=== PATIENT | male | born 1970 | race Caucasian/White ===

== ENCOUNTER 2016-12-21 20:13 | Inpatient (IN) | payer OTHER ==
[~2016-12-21] VITALS: Ht 167.6 cm; Wt 72.6 kg
[~2016-12-21 20:13] MED LIST: GOOD SENSE ASPI81 M3; LOP600 PO; TOPROL XL25 MG
[2016-12-21 21:48] LABS: BASOPHIL % 0.3 % (0-2); PLATELET COUNT 320 x10^3mcL (130-400); RED CELL DISTRIBUTION WIDTH 12.6 % (11.5-14.5)
[2016-12-21 21:52] LABS: CALCIUM 8.9 mg/dL (8.5-10.1); CARBON DIOXIDE 28.8 mmol/L (21-32); CHLORIDE SERUM 103 mmol/L (98-107); CREATININE SERUM 1.2 mg/dL (0.7-1.3); GFR1 > 60 mL/min; GLUCOSE SERUM 118 mg/dL (74-106); POTASSIUM SERUM 3.6 mmol/L (3.5-5.1); SODIUM SERUM 137 mmol/L (136-145)
[2016-12-21 21:57] LABS: ALBUMIN 3.7 g/dL (3.4-5.0); ALKALINE PHOSPHATASE 89 U/L (46-116); ALT/SGPT 27 U/L (16-63); AST/SGOT 20 U/L (15-37); BILIRUBIN TOTAL 0.9 mg/dL (0.20-1.00); TOTAL PROTEIN, SERUM 7.6 g/dL (6.4-8.2)
[2016-12-21] MEDS ORDERED: PRILOSEC OTC20 M1 PO (22:58)
[2016-12-21] MEDS ORDERED: BENAZEPRIL HYDR20 M1 PO (22:58)
[2016-12-21 23:12] LABS: UA SPECIFIC GRAVITY <=1.005 (1.005-1.035); microscopic required? YES; urine erythrocyte TRACE (NEGATIVE)
[2016-12-22 00:49] VITALS: BP 118/79
[2016-12-22 05:54] VITALS: BP 103/70
[2016-12-22 06:28] LABS: CHOLESTEROL/HDL RATIO 4.9
[2016-12-22 08:35] VITALS: BP 105/63
[2016-12-22 13:33] VITALS: BP 118/70
[2016-12-22 15:01] VITALS: BP 118/70
== END 2016-12-22 16:10 | disposition home or self-care (01) | DRG 756 ==
LOC: ED 20:13 → DU 23:17
PROVIDERS: Emergency Medicine; Internal Medicine Pulmonary Disease; ADMIT Internal Medicine Pulmonary Disease
DX: F41.0 Panic disorder [episodic paroxysmal anxiety] (principal); I10 Essential (primary) hypertension; F41.9 Anxiety disorder, unspecified; E78.5 Hyperlipidemia, unspecified
CPT/HCPCS: 83880; J1650; J2405

== ENCOUNTER 2017-01-16 15:41 | Emergency (ER) | payer OTHER ==
[~2017-01-16 15:41] MED LIST changes: +BENAZEPRIL HYDR20 M1 PO; +PRILOSEC OTC20 M1 PO
[2017-01-16 16:48] LABS: CALCIUM 8.9 mg/dL (8.5-10.1); CARBON DIOXIDE 28.8 mmol/L (21-32); CHLORIDE SERUM 103 mmol/L (98-107); CREATININE SERUM 1.2 mg/dL (0.7-1.3); GFR1 > 60 mL/min; GLUCOSE SERUM 114 mg/dL (74-106); POTASSIUM SERUM 3.8 mmol/L (3.5-5.1); SODIUM SERUM 138 mmol/L (136-145)
[2017-01-16 16:49] LABS: BASOPHIL % 0.4 % (0-2); PLATELET COUNT 310 x10^3mcL (130-400); RED CELL DISTRIBUTION WIDTH 13.1 % (11.5-14.5)
[2017-01-16 16:53] LABS: ALBUMIN 3.6 g/dL (3.4-5.0); ALKALINE PHOSPHATASE 64 U/L (46-116); ALT/SGPT 26 U/L (16-63); AST/SGOT 18 U/L (15-37); BILIRUBIN TOTAL 1.19 mg/dL (0.20-1.00); LIPASE 540 IU/L (73-393); TOTAL PROTEIN, SERUM 7.2 g/dL (6.4-8.2)
[2017-01-16 18:08] VITALS: BP 110/69
== END 2017-01-16 18:11 | disposition home or self-care (01) ==
LOC: ED 15:41
PROVIDERS: Emergency Medicine
DX: K85.90 Acute pancreatitis without necrosis or infection, unspecified (principal); I10 Essential (primary) hypertension
CPT/HCPCS: J1885

== ENCOUNTER 2017-01-25 13:45 | Emergency (ER) | payer OTHER ==
[~2017-01-25] VITALS: Ht 172.7 cm; Wt 76.0 kg
[2017-01-25 15:07] VITALS: BP 105/65
== END 2017-01-25 15:07 | disposition home or self-care (01) ==
LOC: ED 13:45
DX: R51 Headache (principal); I10 Essential (primary) hypertension
CPT/HCPCS: Q0162

== ENCOUNTER 2017-02-23 15:19 | Emergency (ER) | payer OTHER ==
[~2017-02-23] VITALS: Ht 170.2 cm; Wt 76.7 kg
[2017-02-23 15:52] VITALS: Ht 170.2 cm; Wt 76.7 kg
[2017-02-24 00:13] VITALS: BP 109/65
== END 2017-02-24 00:14 | disposition home or self-care (01) ==
LOC: ED 15:19
DX: K21.9 Gastro-esophageal reflux disease without esophagitis (principal); H81.10 Benign paroxysmal vertigo, unspecified ear; I10 Essential (primary) hypertension
CPT/HCPCS: J1885; J8597; Q0162